=== PATIENT | male | born 1995 | race Caucasian/White ===

== ENCOUNTER 2023-05-02 03:29 | Emergency (ER) | payer SELFPAY ==
[2023-05-02 03:33] VITALS: BP 142/91; PULSE 99; RESP 19; TEMP 36.3; O2SAT 100; BMI 20.3
--- NOTE | 2023-05-02 03:49 | CTR_ITS ---
PROCEDURE INFORMATION: Exam: CT Head Without Contrast Exam date and time: 05/02/2023 4:12 AM Age: 27 years old Clinical indication: Pain; Headache; Patient HX: LEIGH with n/v; Additional info: Headache vomiting TECHNIQUE: Imaging protocol: Computed tomography of the head without contrast. Radiation optimization: All CT scans at this facility use at least one of these dose optimization techniques: automated exposure control; mA and/or kV adjustment per patient size (includes targeted exams where dose is matched to clinical indication); or iterative reconstruction. COMPARISON: No relevant prior studies available. RADIATION DOSE METRICS: Total DLP (mGy-cm): 1185.27 FINDINGS: Brain: No cerebellar tonsillar ectopia. Bae-white differentiation is grossly maintained. Brain parenchyma is unremarkable. No hemorrhage, infarct, mass, mass effect or extra-axial fluid collection. Cerebral ventricles: Ventricles are unremarkable Paranasal sinuses: Visualized paranasal sinuses demonstrate partial opacification of the ethmoid air cells. Mastoid air cells: Mastoid air cells are clear Bones/joints: Calvarium is intact. Soft tissues: Unremarkable. CT/CT head wo con* [id number] IMPRESSION: 1. No acute intracranial process. 2. Partial opacification of the ethmoid air cells.
--- NOTE | 2023-05-02 03:58 | ED_ITS ---
HPI - Headache 2 General: Chief Complaint: Headache Stated Complaint: stomach pain, vomit + Time Seen by Provider: 05/02/23 03:35 History of Present Illness: 27-year-old male with multiple complaint s this morning. He notes that he felt fine yesterday. He awoke this morning with headache, epigastric pain, vomiting with nausea. He says he has not had sick contacts. No prior history of migraine or headache significant enough to cause vomiting. No history of fever. No diarrhea. Associated symptoms: Reports chest pain (Abdominal pain radiates to the chest), nausea and vomiting; Deny fever(s) or rash Review of Systems 2 Const: Denies: fever(s) or chills Eyes: Denies: change in vision ENMT: Denies: throat pain Card: Reports: chest pain (Abdominal pain radiates to the chest) Resp: Reports: non-productive cough; Denies: dyspnea or productive cough GI: Reports: abdominal pain, nausea and vomiting; Denies: diarrhea : Denies: flank pain Skin/Breast: Denies: rash Neuro: Reports: headache(s); Denies: numbness in extremities, weakness in extremities, sensory changes or Slurred speech present Physical Exam 2 Const: COMMON NORMALS: no acute distress GENERAL APPEARANCE: cooperative; not frail appearing NUTRITIONAL APPEARANCE: thin HENMT: COMMON NORMALS: normocephalic, atraumatic and Normal external nose present HEAD & SCALP: normocephalic and atraumatic FACE & SINUS: normal facial exam and face symmetric NOSE: Normal external nose present Eye: COMMON NORMALS: Equal, round and reactive pupils present and EOMs intact bilaterally PUPIL: Yes Equal, round and reactive pupils present Neck/C-Spine: GENERAL: Yes trachea midline Chest: CHEST: Yes Symmetrical chest wall rise Resp: EFFORT & INSPECTION: Yes symmetric chest movement and Yes tachypneic Cardio: COMMON NORMALS: regular rate and regular rhythm RATE: regular rate RHYTHM: regular rhythm GI: COMMON NORMALS: Normal to inspection, nondistended, normoactive bowel sounds present PALPATION: Yes Tenderness to palpation present (GI) (Epigastric) Extremity: COMMON NORMALS: no pedal edema Neuro: TONYA COMA SCALE: document GCS findings Tonya coma scale eye opening: Spontaneous Tonya coma scale verbal response: Orientated [place] coma scale motor response: Obey commands [place] coma scale total score: 15 S ENSORY EXAM: Yes extremities (intact) Psych: COMMON NORMALS: speech normal SPEECH: Yes normal speech Skin: COMMON NORMALS: no rashes or lesions noted GENERAL SKIN EXAM: no rashes or lesions noted Course 2 Vital Signs: Vital signs: Vital Signs Temperature 97.4 F L 05/02/23 03:33 Pulse Rate 99 05/02/23 03:33 Respiratory Rate 19 H 05/02/23 03:33 Blood Pressure 142/91 05/02/23 03:33 Pulse Oximetry 100 05/02/23 03:33 Oxygen Delivery Me thod Room Air 05/02/23 03:33 MDM - Headache Medical Decision Making Patient is feeling much improved after medication. He wishes to go home. His potassium is minimally low at 3.3. Other laboratory including CRP white blood cell count etc. is normal. His urinalysis is significant for 2+ ketones. Urine drug screen is positive for marijuana, which could be an instigating factor. Flu is negative. With improvement in his symptoms after hydration and medication, he will be allowed home. To return for any worsening symptoms. Lab Data 05/02/23 03:48 05/02/23 03:[address] 05/02/23 03:49 IMPRESSION: 1. No acute intracranial process. 2. Partial opacification of the ethmoid air cells. Laboratory Results WBC 7.86 10^3/uL (3.29-11.43) 05/02/23 03:48 RBC 5.09 10^6/uL (3.85-5.65) 05/02/23 03:48 Hgb 15.20 g/dL (11.27-16.99) 05/02/23 03:48 Hct 43.0 % (37-53) 05/02/23 03:48 MCV 84.5 fl (82-101) 05/02/23 03:48 MCH 29.9 pg (27-33) 05/02/23 03:48 MCHC 35.3 g/dL (30-55) 05/02/23 03:48 RDW 11.9 % (12.1-15.1) L 05/02/23 03:48 Plt Count 242 10^3/cmm (157-399) 05/02/23 03:48 MPV 9.5 fL (7.4-10.4) 05/02/23 03:48 Neut % (Auto) 49.9 % 05/02/23 03:48 Lymph % (Auto) 39.8 % 05/02/23 03:48 [place] % (Auto) 6.2 % 05/02/23 03:48 Eos % (Auto) 2.8 % 05/02/23 03:48 Baso % (Auto) 1.0 % 05/02/23 03:48 Neut # (Auto) 3.92 10^3/uL (1.8-7.7) 05/02/23 03:48 Lymph # (Auto) 3.1 10^3/uL (0.8-4.8) 05/02/23 03:48 [place] # (Auto) 0.5 10^3/uL (0.2-0.9) 05/02/23 03:48 Eos # (Auto) 0.2 10^3/uL (0.0-0.8) 05/02/23 03:48 Baso # (Auto) 0.1 10^3/uL (0.0-0.1) 05/02/23 03:48 Nucleated RBC % (auto) 0 % 05/02/23 03:48 Nucleated RBCs # 0.0 /100WBC 05/02/23 03:48 Sodium 138 mmol/L (136-145) 05/02/23 03:48 Potassium 3.3 mmol/L (3.5-5.1) L 05/02/23 03:48 Chloride 102 mmol/L (98-107) 05/02/23 03:48 Carbon Dioxide 23 mmol/L (22-29) 05/02/23 03:48 Anion Gap 16.3 (5-19) 05/02/23 03:48 BUN 16 mg/dL (6-20) 05/02/23 03:48 Creatinine 0.7 mg/dL (0.7-1.2) 05/02/23 03:48 GFR Calculation 137.4 mL/min (90-130) H 05/02/23 03:48 Glucose 120 mg/dL (65-115) H 05/02/23 03:48 Calculated Osmolality 288 mOsm/kg (285-295) 05/02/23 03:48 Calcium 10.0 mg/dL (8.5-10.5) 05/02/23 03:48 Total Bilirubin 0.7 mg/dL (0.15-1.2) 05/02/23 03:48 AST 16 U/L (0-40) 05/02/23 03:48 ALT 14 U/L (0-41) 05/02/23 03:48 Alkaline Phosphatase 43 U/L (40-130) 05/02/23 03:48 C-Reactive Protein 3.0 mg/L (0.0-4.9) 05/02/23 03:48 Total Protein 7.2 g/dL (6.6-8.7) 05/02/23 03:48 Albumin 5.0 g/dL (3.5-5.2) 05/02/23 03:48 Globulin 2.2 g/dL (1.3-4.6) 05/02/23 03:48 Lipase 24 U/L (13-60) 05/02/23 03:48 Urine Color Yellow (Yellow) 05/02/23 04:35 Urine Appearance Clear (CLEAR) 05/02/23 04:35 Urine pH 8 (5-7) H 05/02/23 04:35 Ur Specific [place] 1.015 (1.005-1.030) 05/02/23 04:35 Urine Protein Neg (Negative) 05/02/23 04:35 Urine Glucose (UA) Norm (Normal) 05/02/23 04:35 Urine Ketones 2+ (Negative) H 05/02/23 04:35 Urine Blood Neg (Negative) 05/02/23 04:35 Urine Nitrate Negative (Negative) 05/02/23 04:35 Urine Bilirubin Neg (Negative) 05/02/23 04:35 Prot Sulfosalicylic Acd Negative (Negative) 05/02/23 04:35 Urine Urobilinogen Neg mg/dL (Negative) 05/02/23 04:35 Ur Leukocyte Esterase Negative (Negative) 05/02/23 04:35 Urine Opiates Screen Positive ng/mL (Negative) H 05/02/23 04:35 Ur Barbiturates Screen Negative ng/mL (Negative) 05/02/23 04:35 Ur Phencyclidine Scrn Negative ng/mL (Negative) 05/02/23 04:35 Ur Amphetamines Screen Negative ng/mL (Negative) 05/02/23 04:35 U Benzodiazepines Scrn Negative ng/mL (Negative) 05/02/23 04:35 Urine Cocaine Screen Negative ng/mL (Negative) 05/02/23 04:35 U Marijuana (THC) Screen Positive ng/mL (Negative) H 05/02/23 04:35 Influenza Type A Ag negative (Negative) 05/02/23 04:10 Influenza Type B Ag negative (Negative) 05/02/23 04:10 All radiology interpretation(s) finalized by discharge Discharge Plan Discharge Patient Disposition: Home Clinical Impression: Headache, Vomiting Condition: Stable Prescriptions: New ondansetron 4 mg tablet,disintegrating 4 mg PO Q6H PRN (Reason: nausea and vomiting) Qty: 14 0RF Discharge Orders: Discharge ED (Routine); Ordered 05/02/23 Ordered By: Willy Winchester Patient Instructions: Acute Headache (ED), Opioid Safety, Pain Management, Vomiting - Adult Activity Restrictions/Additional Instructions: Clear liquids for the next 12 hours. Use nausea medication scheduled for the next 12 hours whether feeling nauseated or not. You may take as needed following that. See your doctor this week. Return for any problems. Coding Level of Care Code ED [employer] for [employer]
[2023-05-02] MEDS: sodium chloride 0.9% 1,000 ML 999 ML IV (03:59)
[2023-05-02] MEDS: ketorolac 30 mg/mL INJ IVP (04:00)
[2023-05-02 04:01] LABS: Basophils # 0.1 10^3/uL (0.0-0.1); Eosinophils # 0.2 10^3/uL (0.0-0.8); Eosinophils % 2.8 %; Lymphocytes # 3.1 10^3/uL (0.8-4.8); Lymphocytes % 39.8 %; Mean Corpuscular HGB Conc 35.3 g/dL (30-55); Mean Corpuscular Hemoglobin 29.9 pg (27-33); Mean Corpuscular Volume 84.5 fl (82-101); Mean Platelet Volume 9.5 fL (7.4-10.4); Monocytes # 0.5 10^3/uL (0.2-0.9); Monocytes % 6.2 %; Neutrophils # 3.92 10^3/uL (1.8-7.7); Neutrophils % 49.9 %; Nucleated Red Blood Cells % 0 %; Platelet Count 242 10^3/cmm (157-399); Red Blood Count 5.09 10^6/uL (3.85-5.65); Red Cell Distribution Width 11.9 % (12.1-15.1); White Blood Count 7.86 10^3/uL (3.29-11.43)
[2023-05-02] MEDS: morphine 4 mg/mL SDV 1 mL IVP (04:01)
[2023-05-02] MEDS: haloperidol inj 5 mg/mL INJ 1 mL 3 MG IVP (04:02)
[2023-05-02 04:20] LABS: Alanine Aminotransferase 14 U/L (0-41); Alkaline Phosphatase 43 U/L (40-130); Anion Gap 16.3 (5-19); Aspartate Amino Transferase 16 U/L (0-40); Blood Urea Nitrogen 16 mg/dL (6-20); Carbon Dioxide 23 mmol/L (22-29); Chloride 102 mmol/L (98-107); Creatinine Clr Calc Pharmacy 168.3372; Globulin 2.2 g/dL (1.3-4.6); Glomerular Filtration Rate 137.4 mL/min (90-130); Glucose 120 mg/dL (65-115); Lipase 24 U/L (13-60); Osmolality Calculated 288 mOsm/kg (285-295); Potassium 3.3 mmol/L (3.5-5.1); Sodium 138 mmol/L (136-145); Total Bilirubin 0.7 mg/dL (0.15-1.2); Total Protein 7.2 g/dL (6.6-8.7)
[2023-05-02 04:29] LABS: Influenza A by IFA negative (Negative); Influenza B by IFA negative (Negative)
[2023-05-02 04:39] LABS: Add Urine Microscopic? NO; Charge for UA Resulting for Rev
[2023-05-02 04:47] LABS: Bilirubin Urine Neg (Negative); Blood Urine Neg (Negative); Glucose Urine UA Norm (Normal); Ketones Urine 2+ (Negative); Leukocyte Esterase Urine Negative (Negative); Nitrate Urine Negative (Negative); Protein Urine Neg (Negative); Specific Gravity, Urine 1.015 (1.005-1.030); Sulfosalicylic Acid Urine Negative (Negative); Urine Appearance Clear (CLEAR); Urine Color Yellow (Yellow); Urobilinogen Urine Neg (Negative); pH Urine 8 (5-7)
[2023-05-02 04:53] LABS: Amphetamines Screen Urine Negative (Negative); Barbiturates Screen Urine Negative (Negative); Benzodiazepines Screen Urine Negative (Negative); Cocaine Screen Urine Negative (Negative); Opiate Screen Urine Positive (Negative); PCP Screen Urine Negative (Negative); THC Screen Urine Positive (Negative)
[2023-05-02 05:19] VITALS: BP 142/91; PULSE 99; RESP 19; TEMP 36.3; O2SAT 100
== END 2023-05-02 05:20 | disposition home or self-care (01) ==
PROVIDERS: Emergency Provider Emergency Medicine
DX: R51.9 Headache, unspecified (principal); R11.11 Vomiting without nausea
CPT/HCPCS: 70450; 80053; 80306; 81003; 83690; 85025; 86140; 87804; 96361; 96374; 96375; 99285; J1630; J1885; J2270; J7030